=== PATIENT | male | born 1965 | race Caucasian/White ===

== ENCOUNTER 2017-02-14 18:02 | Emergency (ER) | payer OTHER ==
[~2017-02-14] VITALS: Ht 185.4 cm; Wt 95.0 kg
[2017-02-14 18:04] VITALS: Ht 185.4 cm; Wt 95.0 kg
--- NOTE | 2017-02-14 18:30 | ERD ---
ER Documentation Chief Complaint Date/Time DATE: 02/14/17 TIME: 18:29 Chief Complaint abd pain , hard stool x 1 week HPI 51-year-old male presents emergency department for abdominal pain, hard stools for about a week. Stated that his last bowel movement was today and it was hard. Denies headache, loss of consciousness, dizziness, blurry vision, changes in vision, photophobia, facial pain, ear pain, throat pain, difficulty swallowing, neck pain, shoulder pain, chest pain, cough, hemoptysis, back pain, loss of appetite, nausea, vomiting, changes in diet, hematochezia, diarrhea, urinary symptoms, bladder and bowel incontinences, extremity weakness, extremity tenderness, numbness or tingling sensation, difficulty walking, recent travel, recent exposure to illness, recent antibiotic use in the last 3 months, fever, chills. Allergy: NKDA. PMH: Denies. Medications: Denies. Surgery: Denies. Family history: Denies family history of cardiac before the age of 50, colon cancer. Primary Social History: Patient stated that he works at a [employer]. Smokes about 10-12 sticks of cigarettes a day. Occasional drinks alcoholic beverages. Denies use of illegal drugs. ROS All systems reviewed and are negative except as per history of present illness. Medications Home Meds Active Scripts Psyllium Husk (Metamucil) 660 Gm Powder, 660 GM PO DAILY for 7 Days, #20 Prov:CHON ESCUDERO F 02/14/17 Docusate Sodium* (Colace*) 100 Mg Capsule, 100 MG PO q day Y for constiptation, #30 CAP Prov:CHON ESCUDERO F 02/14/17 Allergies Allergies: Coded Allergies: No Known Allergy (Unverified , 02/14/17) Physical Exam Vitals Vital Signs Date Time Temp Pulse Resp B/P Pulse Ox O2 Delivery O2 Flow Rate FiO2 02/14/17 19:45 98.4 61 18 166/88 99 Room Air 02/14/17 18:04 98.2 74 18 158/88 99 Physical Exam CONSTITUTIONAL: Well-appearing; well-nourished; in no apparent distress. HEAD: Normocephalic; atraumatic. EYES: Conjunctiva clear, sclera non-icteric, EOM intact. PERRL Ears: Hearing intact. EACs clear, TMs non-bulging, non-inflamed, translucent & mobile, ossicles normal appearance, No obstructions, no erythema, no discharges Nose: No obstructions. No polyps. No external lesions. Mucosa non-inflamed. No external lesions, septum and turbinates normal. No rhinorrhea. No discharges. Frontal sinus is non-tender to palpation. Maxillary sinus is non-tender to palpation. MOUTH: Moist mucous membranes, no lesion, no obstructions, no vesicles, no thrush, patent airway Throat: Uvula in midline. Right tonsil is +1 with no erythema, no exudate. Left tonsil is +1 with no erythema, no exudate. Tolerating secretions well. Good gag reflex. Patent airway. Neck: Supple, without lesions, bruits, or adenopathy. No mass. Thyroid non- enlarged and non-tender to palpation. CHEST: Symmetrical chest. Respirations even and not labored. No retractions noted. CARDIOVASCULAR: Normal S1, S2. RRR. No murmurs, gallops. RESPIRATORY: Normal chest excursion with respiration; breath sounds clear and equal bilaterally; no wheezes, rhonchi, or rales. Breathing even and unlabored. Speaking in clear, full, and complete sentences w/ ease. ABDOMEN: Normal bowel sounds normal. Soft, round, non-distended, non-guarding, no tenderness, no rebound, no organomegaly, no masses, no pulsating abdominal mass. No hernia. No peritoneal signs. : No CVA tenderness. BACK: Symmetrical shoulder. Spine is midline without deformity, tenderness. No evidence of trauma or deformity. PELVIS: Stable pelvis. No evidence of trauma or deformity. MUSCULOSKELETAL: Normal gait and station. No misalignment, asymmetry, crepitation, defects, tenderness, masses, effusions, decreased range of motion, instability, atrophy or abnormal strength or tone in the head, neck, spine, ribs , pelvis or extremities. No calf tenderness. NEUROVASCULAR: Distal pulses are present. Pedal pulse are present, equal, and normal. Capillary refills are < 2 seconds. NEUROLOGIC: Alert and oriented x4. Speaks full and clear sentences. Cranial Nerves II-XII normal. Sensation to pain, touch, and proprioception normal. Grossly unremarkable. No neurologic deficits. Romberg test is negative. PSYCHOLOGICAL: The patients mood and manner are appropriate. No hallucinations , delusions. Not SI. Not HI. Has the capacity to decide for self SKIN: Normal for age and ethnicity; warm; dry; good turgor; no apparent lesions or exudates. No rashes, hives, discoloration. Intact. Procedures/MDM Examination: Please see physical examination. Disease process, medical treatment was explained to the patient and family member. They verbalized understanding and agreed with the diagnostic tests, medical treatment, and follow-up care. Radiology: KUB x-ray Impression:. Unremarkable abdominal x-ray series. Re-evaluation: Denies headache, dizziness, blurry vision, neck pain, shoulder pain, chest pain, back pain, abdominal pain, nausea, numbness or tingling sensation. No episode of emesis here in the emergency department. There is no right upper/right lower/epigastric/left upper/left lower abdominal tenderness and light and deep palpation. Negative on Rovsing's sign. Negative Brawley sign. No peritoneal signs. No CVA tenderness. No neurovascular deficit. No neurological deficits. Consultation: None. Differential diagnosis: Constipation Medical decision makin-year-old male presents emergency department for abdominal pain, hard stools for about a week. Stated that his last bowel movement was today and it was hard. Patient's complaint, patient's history about his complaint, my physical findings, diagnostic test results, my reevaluation are consistent my final diagnosis of constipation. Medications prescribed are the following: Metamucil. Colace. Patient and family member are made aware of the side effects and adverse reactions of the medications prescribed. Instructed on when to seek emergent and medical attention in case allergic/anaphylactic reactions or severe side effects and or adverse reactions to medications. Patient and family member verbalized understanding. Patient instructed Instructed to follow-up with his PCP in 24-48 hours. Instructed to Call 911 for chest pain, shortness of breath. Advised to come back here in ED as soon as possible for severity of symptoms which includes but not limited to: any new symptoms; shortness of breath/difficulty of breathing; cardiovascular changes; severe gastrointestinal symptoms; signs and symptoms of bleeding and or infection; signs of compartment syndrome/neurovascular changes; neurological changes/deficits. Patient and family member verbalized understanding. Upon discharge, patient is alert and oriented x 4, speaks full and clear sentences, denies pain, has no neurological deficits, has no neurovascular deficits, difficulty of breathing. Breathing even and unlabored. Lung sounds are clear to auscultation. Not in distress. Appears comfortable. Ambulatory with steady gait. Appears satisfied with care provided here in ED. Departure Diagnosis: Primary Impression: Constipation Condition: Good Additional Instructions: Instructed to follow-up with his PCP in 24-48 hours. Instructed to Call 911 for chest pain, shortness of breath. Advised to come back here in ED as soon as possible for severity of symptoms which includes but not limited to: any new symptoms; shortness of breath/difficulty of breathing; cardiovascular changes; severe gastrointestinal symptoms; signs and symptoms of bleeding and or infection; signs of compartment syndrome/neurovascular changes; neurological changes/deficits. Patient and family member verbalized understanding. CHON ESCUDERO Feb 14, 2017 18:30
--- NOTE | 2017-02-14 19:21 | RADRPT ---
PROCEDURE: XR Abdomen. CLINICAL INDICATION: Abdominal pain TECHNIQUE: Single frontal view of the abdomen is available for review. COMPARISON: None. FINDINGS: The bowel gas pattern is normal. There is no evidence of obstruction. There are no abnormal calcific ations overlying the urinary tracts. The osseous structures are unremarkable. IMPRESSION: 1. Unremarkable abdomen x-ray series. RPTAT: QQ .Alex Bosch MD, MD Date Time Electronically viewed and signed by .Alex Bosch MD, on 02/14/2017 19:20 .L/
[2017-02-14] MEDS ORDERED: DOCU-144 PO (19:43)
[2017-02-14 19:45] VITALS: BP 166/88; PULSE 61; RESP 18; TEMP 98.4
[2017-02-14] MEDS ORDERED: PSYL660P17 PO (19:45)
== END 2017-02-14 20:15 | disposition home or self-care (01) ==
LOC: FTE 18:02
DX: K59.00 Constipation, unspecified (principal); F17.210 Nicotine dependence, cigarettes, uncomplicated
CPT/HCPCS: 74000; Z7502

== ENCOUNTER 2017-02-18 17:09 | Emergency (ER) | payer OTHER ==
[~2017-02-18] VITALS: Ht 190.5 cm; Wt 93.5 kg
[~2017-02-18 17:09] MED LIST: DOCU-144 PO; PSYL660P17 PO
[2017-02-18 17:23] VITALS: Ht 190.5 cm; Wt 93.5 kg
[2017-02-18] MEDS ORDERED: SOD CHLORIDE 0.9% 1,000 ML IV STA (19:56)
--- NOTE | 2017-02-18 19:56 | ERD ---
ER Documentation Chief Complaint Date/Time DATE: 02/18/17 TIME: 19:56 Chief Complaint ap x 10 days; diarrhea starting today HPI 51-year-old male ambulatory to the ED complaining of a 10 day history of crampy , generalized, moderate to severe abdominal pain which localized to the left lower quadrant. He was seen in the ED 02/14/2017 for constipation and treated with cathartics and now has had multiple episodes of nonbloody, nonmucoid, diarrhea since yesterday. Pain is ongoing. No relieving or exacerbating factors. Denies dysuria, polyuria or hematuria. No chest pain, palpitations or shortness of breath. Denies anorexia or weight loss. No fevers, chills or night sweats. ROS All systems reviewed and are negative except as per history of present illness. Medications Home Meds Active Scripts Psyllium Husk (Metamucil) 660 Gm Powder, 660 GM PO DAILY for 7 Days, #20 Prov:PASILABAN,KLAR F 02/14/17 Docusate Sodium* (Colace*) 100 Mg Capsule, 100 MG PO q day Y for constiptation, #30 CAP Prov:PASILABAN,KLAR F 02/14/17 Allergies Allergies: Coded Allergies: No Known Allergy (Unverified , 02/18/17) PMhx/Soc Reviewed in chart. As per HPI. Medical and Surgical Hx: pt denies Medical Hx, pt denies Surgical Hx Anesthesia Reaction: No Hx Respiratory Disorders: No Hx Cardiac Disorders: No Hx Psychiatric Problems: No Hx Miscellaneous Medical Probl: No Hx Alcohol Use: Yes Hx Substance Use: No Hx Tobacco Use: Yes Smoking Status: Current every day smoker FmHx No stroke or cancer Physical Exam Vitals Vital Signs Date Time Temp Pulse Resp B/P Pulse Ox O2 Delivery O2 Flow Rate FiO2 02/18/17 17:23 98.4 63 18 152/86 97 Physical Exam Const: Alert, moderate distress due to pain Head: Atraumatic Eyes: Normal Conjunctiva ENT: Normal External Ears, Nose and Mouth. Neck: Full range of motion. Nontender. Resp: Clear to auscultation bilaterally Cardio: Regular rate and rhythm, no murmurs Abd: Soft, left lower quadrant tenderness without rebound or guarding. No masses or abnormal pulsations. Skin: No petechiae or rashes Back: No midline or flank tenderness Ext: No cyanosis, or edema Neur: Awake and alert Psych: Normal Mood and Affect Result Diagram: 02/18/17193902/18/171939 Results 24 hrs Laboratory Tests Test 02/18/17 19:40 02/18/17 20:00 White Blood Count 9.610^3/ul Red Blood Count 3.7410^6/ul Hemoglobin 11.5g/dl Hematocrit 33.9% Mean Corpuscular Volume 90.6fl Mean Corpuscular Hemoglobin 30.7pg Mean Corpuscular Hemoglobin Concent 33.9g/dl Red Cell Distribution Width 13.0% Platelet Count 65380^3/UL Mean Platelet Volume 9.5fl Neutrophils % 50.0% Lymphocytes % 38.3% Monocytes % 7.7% Eosinophils % 3.1% Basophils % 0.5% Nucleated Red Blood Cells % 0.0/100WBC Neutrophils # 4.810^3/ul Lymphocytes # 3.710^3/ul Monocytes # 0.710^3/ul Eosinophils # 0.310^3/ul Basophils # 0.110^3/ul Nucleated Red Blood Cells # 0.010^3/ul Sodium Level 139mmol/L Potassium Level 4.8mmol/L Chloride Level 106mmol/L Carbon Dioxide Level 26mmol/L Anion Gap 12 Blood Urea Nitrogen 22mg/dl Creatinine 1.68mg/dl Glucose Level 89mg/dl Calcium Level 9.7mg/dl Urine Color LT. YELLOW Urine Clarity CLEAR Urine pH 5.0 Urine Specific Iron 1.010 Urine Ketones NEGATIVE Urine Nitrite NEGATIVE Urine Bilirubin NEGATIVE Urine Urobilinogen 0.2 E.U./dL Urine Leukocyte Esterase NEGATIVE Urine Hemoglobin NEGATIVE Urine Glucose NEGATIVE% Urine Total Protein NEGATIVE Current Medications Medications (Trade) Dose Ordered Sig/Radhika Route PRN Reason Start Time Stop Time Status Last Admin Dose Admin Sodium Chloride (NS) 1,000 ml @ 1,000 mls/hr Q1H STAT IV 02/18/17 19:56 02/18/17 20:55 DC 02/18/17 20:04 PROCEDURE: CT abdomen and pelvis without intravenous contrast. CLINICAL INDICATION: left lower quadrant pain. TECHNIQUE: CT of the abdomen/pelvis was performed utilizing axial images with reconstructions in sagittal and coronal planes. The administered radiation dose is CTDI 11.8 mGy, DLP 686 mGy-cm. COMPARISON: No pertinent prior examinations were submitted for comparison. FINDINGS: Visualized Chest: The visualized lung bases are clear. Abdomen: The liver, spleen, pancreas, gallbladder,and adrenal glands are unremarkable. There is mild bilateral hydronephrosis extending through the level of the mid ureters. No definite urinary calculi are seen. There is no evidence of bowel obstruction. The appendix is normal. No intra- abdominal free air is seen. There is confluent soft tissue throughout the retroperitoneum, extending into the pelvic sidewalls. This encases the aorta without displacing anteriorly. Pelvis: There is no evidence of pelvic free fluid. The prostate and bladder are unremarkable. Bilateral scrotal hydroceles are noted, partially visualized. Osseous structures: Unremarkable. IMPRESSION: Confluent soft tissue within the retroperitoneum extending into the pelvic sidewalls likely due to adenopathy although retroperitoneal fibrosis a similar appearance. Bilateral obstructive uropathy secondary to the retroperitoneal process. RPTAT: HIKT .Jonas Barrera MD, MD Date Time Electronically viewed and signed by .Jonas Barrera MD, MD on 02/18/2017 21:17 .T/ Procedures/MDM DOCUMENTS REVIEWED: ED nurse, prior ED MEDICAL DECISION MAKIN-year-old male ambulatory to the ED complaining of a 10 day history of crampy, generalized, moderate to severe abdominal pain which localized to the left lower quadrant. CT findings as above with extensive retroperitoneal lymphadenopathy resulting in hydronephrosis. Differential diagnosis includes but is not limited to lymphoma and retroperitoneal fibrosis. Admission was arranged however patient is refusing. Counseled family extensively regarding the serious nature of his presentation and the potential for rapid deterioration. Unfortunately he is unwilling to accept admission for further evaluation and insisting on signing out AGAINST MEDICAL ADVICE. Counseled patient and family regarding diagnosis, diagnostic results and plan for admission. CALLS/CONSULTS: Time 21:50, Dr. Parsons, Recommends med/surg admission. PATIENT CARE TRANSITIONED: Time: 21:55, Dr. Parsons. Time:22:30. Patient refusing admission. Extensive counseling of the family regarding the diagnosis and lab results. Patient is refusing admission. Despite my best efforts of those of the nursing staff were unable to convince him otherwise. Patient is insisting on signing out AGAINST MEDICAL ADVICE. Understands that he is welcome to return to the ED at any time should he change his mind. Departure Diagnosis: Primary Impression: Generalized abdominal pain Additional Impressions: Retroperitoneal lymphadenopathy Hydronephrosis Hydronephrosis type: other Qualified Code: N13.39 - Other hydronephrosis Acute renal insufficiency Condition: Serious (AGAINST MEDICAL ADVICE.) FRANCIS BYNUM MD Feb 18, 2017 19:56
[2017-02-18 20:03] LABS: ADD SCAN DIFF NO
[2017-02-18 20:08] LABS: BASOPHIL # 0.1 10^3/ul (0.0-0.1); BASOPHILS % 0.5 % (0.0-2.0); EOSINOPHILS # 0.3 10^3/ul (0.0-0.5); EOSINOPHILS % 3.1 % (0.0-7.0); HEMATOCRIT 33.9 % (42.0-52.0); HEMOGLOBIN 11.5 g/dl (14.0-18.0); LYMPHOCYTES # 3.7 10^3/ul (0.8-2.9); LYMPHOCYTES % 38.3 % (15.0-51.0); MEAN CORPUSCULAR HEMOGLOBIN 30.7 pg (29.0-33.0); MEAN CORPUSCULAR HGB CONC 33.9 g/dl (32.0-37.0); MEAN CORPUSCULAR VOLUME 90.6 fl (82.0-101.0); MEAN PLATELET VOLUME 9.5 fl (7.4-10.4); MONOCYTE # 0.7 10^3/ul (0.3-0.9); MONOCYTES % 7.7 % (0.0-11.0); NEUTROPHIL # 4.8 10^3/ul (1.6-7.5); PLATELET COUNT 368 10^3/UL (140-415); RED BLOOD COUNT 3.74 10^6/ul (4.70-6.10); WHITE BLOOD COUNT 9.6 10^3/ul (4.8-10.8)
[2017-02-18 20:15] LABS: CALCIUM 9.7 mg/dl (8.4-10.2); CREATININE 1.68 mg/dl (0.61-1.24); POTASSIUM 4.8 mmol/L (3.5-5.1)
[2017-02-18 20:20] LABS: ADD UMIC NO; URINE BILIRUBIN (Dip) NEGATIVE (NEGATIVE); URINE BLOOD (Dip) NEGATIVE (NEGATIVE); URINE COLOR LT. YELLOW (YELLOW); URINE GLUCOSE (Dip) NEGATIVE (NEGATIVE); URINE KETONES (Dip) NEGATIVE (NEGATIVE); URINE LEUKOCYTE ESTERASE (Dip) NEGATIVE (NEGATIVE); URINE NITRITE (Dip) NEGATIVE (NEGATIVE); URINE TOTAL PROTEIN (Dip) NEGATIVE (NEGATIVE); URINE UROBILINOGEN (Dip) 0.2 E.U./dL (0.1-1.0)
--- NOTE | 2017-02-18 21:17 | RADRPT ---
PROCEDURE: CT abdomen and pelvis without intravenous contrast. CLINICAL INDICATION: left lower quadrant pain. TECHNIQUE: CT of the abdomen/pelvis was performed utilizing axial images with reconstructions in s agittal and coronal planes. The administered radiation dose is CTDI 11.8 mGy, DLP 686 mGy-cm. COMPARISON: No pertinent prior examinations were submitted for comparison. FINDINGS: Visualized Chest: The visualized lung bases are clear. Abdomen: The liver, spleen, pancreas, gallbladder,and adrenal glands are unremarkable. There is mild bilateral hydronephrosis extending through the level of the mid ureters. No definite urinary calculi are seen. There is no evidence of bowel obstruction. The appendix is normal. No intra-abdominal free air is seen. There is confluent soft tissue throughout the retroperitoneum, extending into the pelvic sidewalls. This encases the aorta without displacing anteriorly. Pelvis: There is no evidence of pelvic free fluid. The prostate and bladder are unremarkable. Bilateral scr otal hydroceles are noted, partially visualized. Osseous structures: Unremarkable. IMPRESSION: Confluent soft tissue within the retroperitoneum extending into the pelvic sidewalls likely due to a denopathy although retroperitoneal fibrosis a similar appearance. Bilateral obstructive uropathy secondary to the retroperitoneal process. RPTAT: HIKT .Jonas Barrera MD, MD Date Time Electronically viewed and signed by .Joans Barrera MD, on 02/18/2017 21:17 .T/
== END 2017-02-18 22:38 | disposition left against medical advice (07) ==
LOC: E/R 17:09
DX: R10.84 Generalized abdominal pain (principal); R59.1 Generalized enlarged lymph nodes; N13.39 Other hydronephrosis; N28.9 Disorder of kidney and ureter, unspecified; F17.210 Nicotine dependence, cigarettes, uncomplicated
CPT/HCPCS: 74176; 80048; 81003; 85025; J7030

== ENCOUNTER 2019-03-19 10:22 | Day surgery (SDC) | payer OTHER ==
[2019-03-19] VITALS (18 sets, daily range): BP systolic 115–137; BP diastolic 74–87; PULSE 53–70; RESP 10–29; Ht 190.5 cm; Wt 98.0 kg
[~2019-03-19] VITALS: Ht 190.5 cm; Wt 98.0 kg
--- NOTE | 2019-03-19 07:34 | HPN ---
Date/Time of Note Date/Time of Note DATE: 03/19/19 TIME: 07:33 Interval H&P Admission Note Pt. seen H&P reviewed: No system changes JENNY HAINES MD Mar 19, 2019 07:34
[~2019-03-19 10:22] MED LIST changes: +CEFAZOLIN 2 GM/50 ML (PMX) 50 ML IVPB ONE
--- NOTE | 2019-03-19 11:46 | HPN ---
Date/Time of Note Date/Time of Note DATE: 03/19/19 TIME: 11:46 Interval H&P Admission Note Pt. seen H&P reviewed: No system changes JENNY HAINES MD Mar 19, 2019 11:46
--- NOTE | 2019-03-19 11:57 | PREAC ---
Date/Time of Note Date/Time of Note DATE: 03/19/19 TIME: 11:56 Anesthesia Eval and Record Evaluation Time Pre-Procedure Interview DATE: 03/19/19 TIME: 11:56 Age 53 Sex male NPO: 8 hrs Preoperative diagnosis b/l hydrocele Planned procedure b/l hydrocelectomy Past Medical History Past Medical History: Includes Cardio: Dyslipidemia Pulm: Smoking Hx GI: Obesity Surgery & Anesthesia Issues No known issue Meds Anticoagulation: No Beta Omar within 24 hr: No Reason Beta Omar not given: Pt. not on B-Omar Active Scripts Psyllium Husk (Metamucil) 660 Gm Powder, 660 GM PO DAILY for 7 Days, #20 Prov:MEHUL ESCUDEROAR F 02/14/17 Docusate Sodium* (Colace*) 100 Mg Capsule, 100 MG PO q day PRN for constiptation, #30 CAP Prov:PASILABAN,KLAR F 02/14/17 Meds reviewed: Yes Allergies Coded Allergies: No Known Allergy (Unverified , 02/18/17) Allergies Reviewed: Yes Labs/Studies Labs Reviewed: Reviewed by anesthesiologist test: N/A Pre-procedure Exam Last vitals Vital Signs Date Temp Pulse Resp B/P (MAP) Pulse Ox O2 O2 Flow FiO2 Time Delivery Rate 03/19/19 98.0 53 20 115/87 96 Room Air 11:00 (96) Airway: Adequate mouth opening, Adequate thyromental dist Mallampati: Mallampati II Teeth: Abnormal (dentures top and bottom) Lung: Normal Heart: Normal ASA Physical Status ASA physical status: 2 Emergency: None Planned Anesthetic General/MAC: ETT Pre-operative Attestations Prior to commencing anesthesia and surgery, the patient was re-evaluated, there was verification of: *The patient's identity *The results of appropriate recent lab work and preoperative vital signs *The above evaluation not changing prior to induction *Anesthetic plan, risk benefits, alternative and complications discussed with patient/family; questions answered; patient/family understands, accepts and wishes to proceed. CHRISTIAN BANUELOS Mar 19, 2019 11:57
[2019-03-19] MEDS ORDERED: HYDROmorphONE 1 MG/5 ML IV SYRINGE IV PRN ×3 (12:00)
[2019-03-19] MEDS ORDERED: METOCLOPRAMIDE 10 MG INJ IV PRN (12:00)
[2019-03-19] MEDS ORDERED: DIPHENHYDRAMINE 50 MG INJ IV PRN (12:00)
[2019-03-19] MEDS ORDERED: ONDANSETRON 4 MG INJ IV PRN (12:00)
[2019-03-19] MEDS ORDERED: MEPERIDINE 25 MG INJ IV PRN (12:00)
[2019-03-19] MEDS ORDERED: ALBUTEROL 0.083% (NEB) 2.5 MG/3 ML AMP HHN PRN (12:00)
[2019-03-19] MEDS ORDERED: FENTAnyl 50 MCG/ML VIAL IV PRN ×2 (12:00)
[2019-03-19] MEDS ORDERED: ROCURONIUM 50 MG INJ ONE ×2 (12:04→12:07)
[2019-03-19] MEDS ORDERED: FENTAnyl 50 MCG/ML VIAL ONE (12:05)
[2019-03-19] MEDS ORDERED: LIDOCAINE 100 MG SYRINGE ONE (12:07)
[2019-03-19] MEDS ORDERED: CEFAZOLIN 1 GM INJ ONE (12:07)
[2019-03-19] MEDS ORDERED: PROPOFOL 20 ML ONE (12:07)
[2019-03-19] MEDS ORDERED: SUCCINYLCHOLINE CHLORIDE 100 MG/5 ML SYG IV ONE (12:07)
[2019-03-19] MEDS ORDERED: BUPIVACAINE 0.5% (SDV) 30 ML INJ ONE (12:37)
[2019-03-19] MEDS ORDERED: BACITRACIN/POLYMYXIN 28.35 GM OINT TOP ONE (14:08)
[2019-03-19] MEDS ORDERED: SUGAMMADEX SODIUM 200 MG/2 ML VIAL IV ONE (14:09)
[2019-03-19] MEDS ORDERED: LACTATED RINGER'S 1,000 ML IV SCH (14:30)
--- NOTE | 2019-03-19 14:54 | OPR ---
Date/Time of Note Date/Time of Note DATE: 03/19/19 TIME: 14:43 Operative Report Procedure Date: Mar 19, 2019 Preoperative Diagnosis Bilateral large hydroceles Postoperative Diagnosis Same Operation/Procedure Performed Bilateral hydrocelectomy Surgeon see signature line Leather Dresser refresh technician Chiqui Anesthesia Type: general Anesthesiologist: CHRISTIAN BANUELOS Estimated Blood Loss: 10 - 50 ml's Transfusion none Specimen Bilateral hydrocele sacs Grafts/Implants none Tubes/Drains Bilateral FREDI drains 10 mm flat Complications none Disposition: PACU Indications Large bilateral hydroceles Procedure Description The patient was brought to the operating room and given general anesthesia. He was positioned in the supine position. The genital area was shaved. Timeout was done and the patient was identified by his name, birthdate and the procedure. He was given 2 g of Ancef IV at the start of the procedure. Then the genital area was prepped and draped in the usual sterile manner. A vertical incision was made over the right side of the scrotum and deepened through the different layer of the scrotal wall. The hydrocele was then delivered through the incision and then opened and drained it had over a liter of yellowish fluid all the bleeders were electrocoagulated and good hemostasis was obtained. The hydrocele sacs were resected. The edges were then sutured with a running interlocked 3-0 Vicryl sutures. Then a 10 mm flat FREDI drain was inserted into the scrotal cavity through a different stab wound incision. The patient was then given half percent Marcaine injection into the spermatic cord and in the scrotal wall skin. The subcutaneous tissue was then approximated with 3-0 Vicryl running interlocked sutures. The skin approximated with 3-0 Vicryl running mattress sutures. The FREDI drain was secured with 2-0 nylon suture. After doing the right side the left side was done in exactly similar manner and also had a FREDI drain as well. At the end of the procedure the incisions were covered with triple antibiotic and Telfa and fluff dressing. The dressing was held with an extra-large scrotal support the patient tolerated the procedure well and was transferred to the recovery room in a stable and satisfactory condition JENNY HAINES MD Mar 19, 2019 14:53
[2019-03-19] MEDS ORDERED: HYDROCODONE/APAP (5/325) TAB PO PRN (15:00)
--- NOTE | 2019-03-20 05:49 | PAC ---
Date/Time of Note Date/Time of Note DATE: 03/20/19 TIME: 05:49 Post-Anesthesia Notes Post-Anesthesia Note Last documented vital signs Vital Signs Date Temp Pulse Resp B/P (MAP) Pulse Ox O2 O2 Flow FiO2 Time Delivery Rate 03/19/19 56 24 125/84 95 Room Air 15:56 (98) 03/19/19 98.2 14:45 Activity: WNL Respiratory function: WNL Cardiovascular function: WNL Mental status: Baseline Pain reasonably controlled: Yes Hydration appropriate: Yes Nausea/Vomiting absent: Yes CHRISTIAN BANUELOS Mar 20, 2019 05:49
== END 2019-03-19 16:15 | disposition home or self-care (01) ==
LOC: SDS 10:22
PROVIDERS: ATTEND Urology
DX: N43.3 Hydrocele, unspecified (principal)
CPT/HCPCS: 55500; 88302; J0690; J1170; J2001; J3010